=== PATIENT | male | born 1950 | race Caucasian/White ===

== ENCOUNTER 2016-07-01 14:28 | Emergency (ER) | payer MEDICARE, OTHER ==
[~2016-07-01] VITALS: Ht 170.2 cm; Wt 75.0 kg
[~2016-07-01 14:28] MED LIST: DEXA4TAB PO; DOCU-144 PO; FLUT9.9S NASAL; HYDR-3498 PO; LEVE-5 PO; METF-388 PO; OLOP2.5D BOTH EYES
[2016-07-01 14:56] VITALS: Ht 170.2 cm; Wt 75.0 kg
--- NOTE | 2016-07-01 16:00 | RADRPT ---
PROCEDURE: US Lower extremity Venous. CLINICAL INDICATION: Left leg pain TECHNIQUE: Multiple sonographic images of the left lower extremity deep venous system was obtained utilizing grayscale, color-flow, compressive sonography and doppler imaging with augmentation. The images were reviewed on a PACS workstation. COMPARISON: None. FINDINGS: There is normal compressibility and flow within the left common femoral, superficial femoral, label rewinder ior tibial, peroneal and popliteal veins. RPTAT: AA IMPRESSION: No sonographic evidence for deep venous thrombosis. .Jesus Washington MD, MD Date Time Electronically viewed and signed by .Jesus Washington MD, on 07/01/2016 15:59 .S/
[2016-07-01] MEDS ORDERED: KENC1 TOP (16:18)
[2016-07-01] MEDS ORDERED: CLOT30CR24 TOP (16:18)
--- NOTE | 2016-07-01 17:49 | ERD ---
ER Documentation Chief Complaint Date/Time DATE: 07/01/16 TIME: 17:44 Chief Complaint LEG CALF PAIN FOLLOWING SX MONTH AGO HPI 66-year-old male with a past nuchal history of brain cancer and diabetes presents the ED complaining of left leg pain that started yesterday. Patient's son traffic ii manager at this time. Stated that patient had brain surgery on June [address] Rodriguez States that he was discharged from the [facility] on June 23. States that he has an appointment with Dr. laura on July 03. That he called Dr. Rodriguez and he told patient to go to the ED for an ultrasound of the left leg. Reports that he also has a rash on the top of his left foot. Denies any fever, chills, loss sensation, loss of range of motion chest pain, wheezing. ROS All systems reviewed and are negative except as per history of present illness. Medications Home Meds Active Scripts Clotrimazole* (Clotrimazole* AF) 1% - 30 Gm Cream.gm., 1 APPLIC TOP BID for 7 Days, TUB Prov:BRYNN KNAPP PA-C 07/01/16 Triamcinolone Acetonide (Triamcinolone Acetonide) 0.1% - 15 Gm Cream.gm., 1 APPLIC TOP BID, #1 TUB Prov:BRYNN KNAPP PA-C 07/01/16 Levetiracetam* (Keppra*) 500 Mg Tablet, 500 MG PO BID, #30 TAB Prov:OFELIA MARINELLI MD 12/10/15 Docusate Sodium* (Colace*) 100 Mg Capsule, 100 MG PO BID, #60 CAP Prov:TR KOLB MD 12/02/15 Hydrocodone Bit-Acetaminophen* ([place]*) 5-325 Mg Tab, 1 TAB PO Q4H Y for PAIN LEVEL 6-10 for 14 Days, TAB Prov:RT KOLB MD 12/02/15 Reported Medications Dexamethasone* (Dexamethasone*) 4 Mg Tablet, 4 MG PO Q6, TAB 12/10/15 Fluticasone Propionate (Flonase Allergy Relief) 9.9 Ml [place] Line.susp, 2 SPRAY NASAL DAILY, #1 BOTTLE TO EACH NOSTRIL 11/17/15 Olopatadine* (Pataday*) 0.2% - 2.5 Ml Drops, 1 DROP BOTH EYES DAILY, EA 11/17/15 Metformin Hcl* (Metformin Hcl*) 1,000 Mg Tablet, 1000 MG PO BID WITH MEALS, #30 TAB 11/17/15 Allergies Allergies: Coded Allergies: No Known Allergy (Unverified , 12/10/15) PMhx/Soc History of Surgery: Yes (brain sx) Anesthesia Reaction: No Hx Neurological Disorder: No Hx Respiratory Disorders: No Hx Cardiac Disorders: No Hx Psychiatric Problems: No Hx Miscellaneous Medical Probl: Yes (diabetes, brain cancer) Hx Alcohol Use: No Hx Substance Use: No Hx Tobacco Use: No Smoking Status: Never smoker Physical Exam Vitals Vital Signs Date Time Temp Pulse Resp B/P Pulse Ox O2 Delivery O2 Flow Rate FiO2 07/01/16 14:56 133 20 112/84 100 Physical Exam Const: Iam-yoh-wykdsuanh, well-nourished. In no acute distress. Head: Atraumatic, normocephalic Eyes: Normal Conjunctiva without injection. No purulent discharge. PERRLA. EOMI ENT: Normal external ear. Ear canal without erythema. Tympanic membrane pearly alexander without effusion or bulging. Nasal canal clear with normal turbinates. Moist oropharynx without tonsillar exudates. Non-erythematous pharynx. Uvula midline. No drooling. No trismus. Neck: No cervical midline tenderness. Full range of motion. No meningismus. No cervical lymphadenopathy. No JVD. Resp: Clear to auscultation bilaterally. No wheezing, rhonchi, rales, or crackles. No accessory muscle use. No retractions. Cardio: Regular rate and rhythm. No murmurs, rubs or gallops. Abd: Soft, non tender, non distended. Normal bowel sounds. No palpable masses. No rebound tenderness. No guarding. Negative McBurney's Point. Negative Stern's Sign. Skin: Normal skin turgor. No petechiae. Beefy-red circular rash with central clearing noted on the webspaces of patient's left foot. No erythema, edema, fluctuance, without streaking, papular macular rash. Back: No midline tenderness. No CVA tenderness. Ext: No cyanosis, or edema. Tenderness to palpation of the left calf. No erythema, edema, palpable cords, warmth to touch. Distal pulses intact bilaterally. Cap refill less than 2 seconds. Neur: Awake and alert. Normal gait. Normal coordination. Cranial Nerves II- VII intact. Normal finger to nose. Muscle strength 5/5. Sensation intact. Psych: Normal Mood and Affect Procedures/MDM This is a 66-year-old male with a past medical history of brain cancer status post brain surgery, diabetes presents the ED complaining of left calf pain that started last night. Patient is afebrile and nontoxic-appearing. Patient's rash is likely due to tinea infection. Other differential diagnosis include but is not limited to allergic contact dermatitis, urticaria, insect bites, cutaneous candidiasis, eczema, scabies, tinea infection, erythema multiforme, psoriasis, SJS, TEN. Low suspicion for sepsis, cellulitis, necrotizing fascitis, or other emergent conditions. Patient's extremity symptoms have stabilized while they have been evaluated in the department and are appropriate for outpatient follow up. No evidence of fractures, dislocations, compartment syndrome, neurologic injury, vascular injury, open joint, open fracture, tendon laceration, septic arthritis, osteomyelitis, DVT, foreign body, or other emergent conditions. This was discussed with her Rebekah, my supervising physician. Stated that patient can be managed on outpatient basis. Discharge medications: Triamcinolone, Lotrimin cream Follow up with primary care physician in 1-2 days. Instructed patient to return to the ED sooner for any worsening symptoms. Patient's questions were answered. Patient understood and agreed with discharge plan. Patient discharged stable. Departure Diagnosis: Primary Impression: Pain of left leg Additional Impression: Rash and nonspecific skin eruption Condition: Stable Patient Instructions: Self-Care for Skin Rashes, Possible Causes of Low Back or Leg Pain, Tinea Corporis Referrals: [facility] YOU HAVE RECEIVED A MEDICAL SCREENING EXAM AND THE RESULTS INDICATE THAT YOU DO NOT HAVE A CONDITION THAT REQUIRES URGENT TREATMENT IN THE EMERGENCY DEPARTMENT. FURTHER EVALUATION AND TREATMENT OF YOUR CONDITION CAN WAIT UNTIL YOU ARE SEEN IN YOUR DOCTORS OFFICE WITHIN THE NEXT 1-2 DAYS. IT IS YOUR RESPONSIBILITY TO MAKE AN APPOINTMENT FOR FOLOW-UP CARE. IF YOU HAVE A PRIMARY DOCTOR --you should call your primary doctor and schedule an appointment IF YOU DO NOT HAVE A PRIMARY DOCTOR YOU CAN CALL OUR PHYSICIAN REFERRAL HOTLINE AT IF YOU CAN NOT AFFORD TO SEE A PHYSICIAN YOU CAN CHOSE FROM THE FOLLOWING [facility] [address] [facility] [address] [facility] [address] [facility] [address] [facility] [address] [place] [employer]. [address] [facility] [facility] YOU HAVE RECEIVED A MEDICAL SCREENING EXAM AND THE RESULTS INDICATE THAT YOU DO NOT HAVE A CONDITION THAT REQUIRES URGENT TREATMENT IN THE EMERGENCY DEPARTMENT. FURTHER EVALUATION AND TREATMENT OF YOUR CONDITION CAN WAIT UNTIL YOU ARE SEEN IN YOUR DOCTORS OFFICE WITHIN THE NEXT 1-2 DAYS. IT IS YOUR RESPONSIBILITY TO MAKE AN APPOINTMENT FOR FOLOW-UP CARE. IF YOU HAVE A PRIMARY DOCTOR --you should call your primary doctor and schedule and appointment IF YOU DO NOT HAVE A PRIMARY DOCTOR YOU CAN CALL OUR PHYSICIAN REFERRAL HOTLINE AT . IF YOU CAN NOT AFFORD TO SEE A PHYSICIAN YOU CAN CHOSE FROM THE FOLLOWING [facility] INSTITUTIONS: [facility] [address] [place] [address] [facility] [address] [place] [address] [facility] [address] [place] [address] [facility] URGENT CARE/SPECIALTIES Additional Instructions: FOLLOW UP WITH THE NEUROLOGIST IN 2 DAYS. IMPORTANT TO KEEP YOUR APPOINTMENT. Return to this facility if you are not improving as expected. BRYNN KNAPP PA-C Jul 01, 2016 17:49
== END 2016-07-01 16:49 | disposition home or self-care (01) ==
LOC: FTE 14:28
DX: M79.605 Pain in left leg (principal); I10 Essential (primary) hypertension; E11.9 Type 2 diabetes mellitus without complications; R21 Rash and other nonspecific skin eruption; Z85.841 Personal history of malignant neoplasm of brain; Z79.84 Long term (current) use of oral hypoglycemic drugs
CPT/HCPCS: 93971

== ENCOUNTER 2016-08-07 13:45 | Inpatient (IN) | payer MEDICARE, OTHER ==
[~2016-08-07] VITALS: Ht 167.6 cm; Wt 191.3 kg
[~2016-08-07 13:45] MED LIST changes: +CLOT30CR24 TOP; +KENC1 TOP; -METF-388 PO; +METF1000 PO
[2016-08-07] MEDS ORDERED: morphine 4 MG/ML VIAL IV STA (17:38)
[2016-08-07] MEDS ORDERED: DEXA2TAB5 PO (18:20)
[2016-08-07] MEDS ORDERED: [UNRECOGNIZED DRUG - CODE] PO (18:21)
[2016-08-07] MEDS ORDERED: FLUC100T39 PO (18:22)
[2016-08-07] MEDS ORDERED: FURO40TA4 PO (18:22)
[2016-08-07] MEDS ORDERED: HYDR-906 PO (18:23)
[2016-08-07] MEDS ORDERED: ONDA8TAB83 PO (18:23)
[2016-08-07 18:34] LABS: BASOPHILS % 0.3 % (0.0-2.0); HEMATOCRIT 40.6 % (42.0-52.0); HEMOGLOBIN 13.8 g/dl (14.0-18.0); LYMPHOCYTES # 1.1 10^3/ul (0.8-2.9); MEAN CORPUSCULAR HEMOGLOBIN 32.2 pg (29.0-33.0); MEAN CORPUSCULAR VOLUME 94.9 fl (82.0-101.0); MEAN PLATELET VOLUME 7.9 fl (7.4-10.4); MONOCYTE # 0.4 10^3/ul (0.3-0.9); MONOCYTES % 4.8 % (0.0-11.0); NEUTROPHIL # 6.3 10^3/ul (1.6-7.5); NEUTROPHILS % 80.9 % (39.0-77.0); PLATELET COUNT 271 10^3/UL (140-440); RED BLOOD COUNT 4.28 10^6/ul (4.70-6.10); RED CELL DISTRIBUTION WIDTH 16.1 % (11.5-14.5); UNCORRECTED WBC 7.8 10^3/ul (4.8-10.8); WHITE BLOOD COUNT 7.8 10^3/ul (4.8-10.8)
[2016-08-07 18:37] LABS: CONDITION 1; LH ANALYZER COMMENTS 1
[2016-08-07 18:40] LABS: INR 0.88; PROTIME 11.9 Sec (12.2-14.2); PT RATIO 0.9
[2016-08-07 18:42] LABS: POTASSIUM 4.3 mmol/L (3.5-5.1)
[2016-08-07 18:44] LABS: CREATININE 0.55 mg/dl (0.61-1.24)
[2016-08-07 18:45] LABS: CALCIUM 9.4 mg/dl (8.4-10.2)
--- NOTE | 2016-08-07 19:05 | RADRPT ---
PROCEDURE: CT head without Contrast CLINICAL INDICATION: Headache, history of brain tumor TECHNIQUE: Transaxial images were made through the head on a multi-slice scanner without intraveno us contrast. Coronal and sagittal images were subsequently reformatted. One or more of the following dose reduction techniques were used: - Automated exposure control. - Adjustment of the mA and/or kV according to patient size. - Use of iterative reconstruction technique. Radiation dose: CTDIvol = 42.30 mGy; DLP = 720.23 mGy-cm. COMPARISON: 12/10/2015 FINDINGS: There is again evidence of a previous left craniotomy. There is increased soft tissue thickness invo lving the scalp overlying the craniotomy site. 2 cystic areas are seen deep to the craniotomy site with the largest seen more anteriorly within the left frontal lobe having increased in size from the previous now measuring 2.9 x 2.0 x 1.8 cm. The second is positioned more posteriorly and laterally within the left parietal lobe and measures 1.5 x 0.9 x 0.8 cm. The ventricles are normal in size and there is no midline shift. There is decreased density within the left parietal white matter tracts which may represent mild vas ogenic edema. No intracranial bleed is identified. No intracranial bleed, mass, or significant extra-axial fluid collection is identified. There is no longer pneumocephalus but the subarachnoid spaces particularly in the frontal regions laughlin ve become more prominent compatible with cortical volume loss. IMPRESSION: 1. There is again evidence of a previous left craniotomy. 2. 2 hypodense lesions are now seen deep to the craniotomy site the largest seen within the right f rontal lobe which now measures 2.9 x 2.0 x 1.8 cm, having increased in size from the previous. The other is seen more posteriorly and laterally within the left parietal lobe measuring 1.5 x 0.9 x 0.8 cm and was not evident previously. The larger measures 15 Houn[place]field in density while the smaller measures 24 HU. No these may represent foci of encephalomalacia, cystic neoplasm cannot be excluded . One might consider correlation with MRI with and without gadolinium. 3. Interval mild decrease in density seen through the left parietal white matter tracts suspicious for mild vasogenic edema. This was not evident previously. 4. Increasing cortical loss with more prominent subarachnoid space is seen in the frontal regions b ilaterally. There is no longer postop pneumocephalus. 5. No intracranial bleed or midline shift is identified. 6. There is soft tissue swelling involving the scalp overlying the craniotomy site. Findings of hypodense lesions deep to the craniotomy site for which neoplasm cannot be excluded were telephoned by Xavi Rodriguez MD to Dr. Vides on 08/07/2016 at 02/14/1957 hours. Physician Jacob Date Time Electronically viewed and signed by Physician Jacob on 08/07/2016 19:05 RH/
[2016-08-07 19:33] LABS: PARTIAL THROMBOPLASTIN TIME < 20.0 Sec (25.0-35.0)
[2016-08-07] MEDS ORDERED: ONDANSETRON 4 MG INJ IV PRN ×2 (21:00→23:00)
[2016-08-07] MEDS ORDERED: ACETAMINOPHEN 325 MG TAB PO PRN ×2 (21:00→23:00)
[2016-08-07 22:00] VITALS: PULSE 71; TEMP 98.7
--- NOTE | 2016-08-07 22:03 | ERA ---
ER Documentation Chief Complaint Date/Time DATE: 08/07/16 TIME: 21:57 Chief Complaint severe headache,s/p brain tumor removal a month ago HPI 66-year-old male with a history of glioblastoma status post left craniotomy and tumor resection in November 2015 with a repeat surgery in May 2016 for a recurrent tumor. Patient is presenting with left-sided headache at the site of his surgery for about 3 days. History from the patient is limited as he has chronic expressive aphasia. However his states that he has been complaining about pain for 3 days and the pain has been constant. Is unclear if there is any alleviating or exacerbating factors as the patient is unable to express what he feels. Per his , he has some swelling over the surgical site as well. He has had no breakthrough seizures, fevers, chills, new focal weakness or numbness, or difficulty walking. Of note, he was recently diagnosed with a left lower extremity DVT and had an IVC filter placed ROS All systems reviewed and are negative except as per history of present illness. Medications Home Meds Active Scripts Levetiracetam* (Keppra*) 500 Mg Tablet, 500 MG PO BID, #30 TAB Prov:OFELIA MARINELLI MD 12/10/15 Reported Medications Hydrocodone/Acetaminophen ([place] 5-325 Tablet) 1 Each Tablet, 1 EACH PO Q6H Y for PRN, TAB 08/07/16 Ondansetron Hcl* (Ondansetron Hcl*) 8 Mg Tablet, 8 MG PO Q6H Y for NAUSEA AND OR VOMITING, TAB 08/07/16 Fluconazole* (Fluconazole*) 100 Mg Tablet, 100 MG PO DAILY, TAB 08/07/16 Furosemide* (Furosemide*) 40 Mg Tablet, 40 MG PO QAM, TAB 08/07/16 Flucytosine (FLUCYTOSINE) 500 Mg Capsule, 500 MG PO TID, CAP 08/07/16 Dexamethasone* (Dexamethasone*) 2 Mg Tablet, 2 MG PO Q8, TAB 08/07/16 Metformin Hcl* (Metformin Hcl*) 1,000 Mg Tablet, 1000 MG PO BID WITH MEALS, #30 TAB 11/17/15 Discontinued Reported Medications Dexamethasone* (Dexamethasone*) 4 Mg Tablet, 4 MG PO Q6, TAB 12/10/15 Fluticasone Propionate (Flonase Allergy Relief) 9.9 Ml [place].susp, 2 SPRAY NASAL DAILY, #1 BOTTLE TO EACH NOSTRIL 11/17/15 Olopatadine* (Pataday*) 0.2% - 2.5 Ml Drops, 1 DROP BOTH EYES DAILY, EA 11/17/15 Discontinued Scripts Clotrimazole* (Clotrimazole* AF) 1% - 30 Gm Cream.gm., 1 APPLIC TOP BID for 7 Days, TUB Prov:BRYNN KNAPP PA-C 07/01/16 Triamcinolone Acetonide (Triamcinolone Acetonide) 0.1% - 15 Gm Cream.gm., 1 APPLIC TOP BID, #1 TUB Prov:BRYNN KNAPP PA-C 07/01/16 Docusate Sodium* (Colace*) 100 Mg Capsule, 100 MG PO BID, #60 CAP Prov:TR KOLB MD 12/02/15 Hydrocodone Bit-Acetaminophen* ([place]*) 5-325 Mg Tab, 1 TAB PO Q4H Y for PAIN LEVEL 6-10 for 14 Days, TAB Prov:TR KOLB MD 12/02/15 Allergies Allergies: Coded Allergies: No Known Allergy (Unverified , 08/07/16) PMhx/Soc History of Surgery: Yes (brain sx) Anesthesia Reaction: No Hx Neurological Disorder: No Hx Respiratory Disorders: No Hx Cardiac Disorders: Yes (htn) Hx Psychiatric Problems: No Hx Miscellaneous Medical Probl: Yes (diabetes, brain cancer) Hx Alcohol Use: No Hx Substance Use: No Hx Tobacco Use: No Smoking Status: Never smoker FmHx Family History: No diabetes Physical Exam Vitals Vital Signs Date Time Temp Pulse Resp B/P Pulse Ox O2 Delivery O2 Flow Rate FiO2 08/07/16 18:55 98.7 20 135/78 96 08/07/16 14:10 98.7 107 20 117/77 98 Physical Exam Const: Well-appearing, no distress Head: Atraumatic, bald, left parietal frontal surgical scar noted is well- healed with no overlying erythema. However there is a large area of fluctuance over the surgical site. No induration. Eyes: Normal Conjunctiva, PERRL, EOMI ENT: Normal External Ears, Nose and Mouth. Neck: Full range of motion. No meningismus. Resp: Clear to auscultation bilaterally Cardio: Regular rate and rhythm, no murmurs Abd: Soft, non tender, non distended. Normal bowel sounds Skin: No petechiae or rashes Back: No midline or flank tenderness Ext: No cyanosis, or edema Neur: Awake and alert, expressive aphasia, normal gait, strength and sensations intact in all 4 extremities Psych: Normal Mood and Affect Result Diagram: 08/07/16 1800 08/07/16 1800 Results 24 hrs Laboratory Tests Test 08/07/16 18:00 08/07/16 19:10 Anion Gap 16 Basophils # 0.010^3/ul Basophils % 0.3% Blood Morphology Comment Blood Urea Nitrogen 20mg/dl Calcium Level 9.4mg/dl Carbon Dioxide Level 26mmol/L Chloride Level 99mmol/L Creatinine 0.55mg/dl Eosinophils # 0.010^3/ul Eosinophils % 0.0% Glucose Level 280mg/dl Hematocrit 40.6% Hemoglobin 13.8g/dl Lymphocytes # 1.110^3/ul Lymphocytes % 14.0% Mean Corpuscular Hemoglobin 32.2pg Mean Corpuscular Hemoglobin Concent 34.0g/dl Mean Corpuscular Volume 94.9fl Mean Platelet Volume 7.9fl Monocytes # 0.410^3/ul Monocytes % 4.8% Neutrophils # 6.310^3/ul Neutrophils % 80.9% Nucleated Red Blood Cells # 0.010^3/ul Nucleated Red Blood Cells % 0.0/100WBC Platelet Count 03403^3/UL Potassium Level 4.3mmol/L Red Blood Count 4.2810^6/ul Red Cell Distribution Width 16.1% Sodium Level 137mmol/L White Blood Count 7.810^3/ul Activated Partial Thromboplast Time < 20.0Sec INR International Normalized Ratio 0.88 Prothrombin Time 11.9Sec Prothrombin Time Ratio 0.9 Current Medications Medications (Trade) Dose Ordered Sig/Jose Route PRN Reason Start Time Stop Time Status Last Admin Dose Admin Morphine Sulfate (morphine) 4 mg ONCE STAT IV 08/07/16 17:38 08/07/16 17:53 DC 08/07/16 18:08 Ondansetron HCl (Zofran Inj) 4 mg BRIDGE ORDER PRN IV NAUSEA AND/OR VOMITING 08/07/16 21:00 08/08/16 20:59 Acetaminophen (Tylenol Tab) 650 mg ER BRIDGE PRN PO MILD PAIN/FEVER 08/07/16 21:00 08/08/16 20:59 Procedures/MDM Patient is presenting with new onset headache for 3 days with associated fluctuance over his surgical site. His vitals are stable and he is afebrile. He has a nonfocal neurologic exam. He has chronic expressive aphasia that has not changed. I do not suspect increased intracranial pressure, however there is a possibility of recurrent tumor versus infection versus intracranial hemorrhage. A CT of his head was done and showed new fluid collections that may be cystic masses, however there is an associated fluid collection under the scalp at the surgical site. I discussed the results with the neurosurgeon on- call, Dr. Garcia, who recommended admission for MRI and further workup as there is a possibility that this is an abscess. Accepting Care Team: Current data and ongoing care discussed. Time: Time of admission Primary Provider: Kwadwo Consulting: Radha with Neurosurgery Outstanding Data: none Departure Diagnosis: Primary Impression: Left-sided headache Additional Impressions: Fluid collection at surgical site Qualified Code: T88.8XXA - Fluid collection at surgical site, initial encounter History of brain cancer History of craniotomy Condition: PRABHJOT Rajput MD Aug 07, 2016 22:03
[2016-08-07 22:34] VITALS: BP 140/76; RESP 18
[2016-08-07 22:45] VITALS: Ht 167.6 cm; Wt 191.3 kg
[2016-08-07] MEDS ORDERED: morphine 2 MG INJ IV PRN (23:00)
--- NOTE | 2016-08-07 23:24 | RADRPT ---
PROCEDURE: MR Brain with and without contrast. CLINICAL INDICATION: Status post tumor resection, latest May 2016. Status post radiation ther apy. Increased size of left frontal hypodense lesions. TECHNIQUE: MRI brain was performed on a high field MRI system. Sequences included sagittal T1, ax ial T1, FLAIR, T2, GRE and diffusion weighted. After the administration of 10 cc Magnevist IV cont rast material, axial and coronal T1-weighted images with fat saturation were performed. COMPARISON: CT brain 08/07/2016, MRI 11/30/2015 . FINDINGS: Posterior left frontal craniotomy defect is redemonstrated with overlying extracranial fluid and sof t tissue swelling. There is fluid underlying the craniotomy flap. There is underlying dural thicke cora. There are scattered hypodense foci along the dural flaps as well as within the posterior left frontal surgical defect. There is 2.8 x 1.9 x 2.3 cm irregular peripherally enhancing lesion exten ding to the cortical surface. The central contents are homogeneous without evidence for blood produ cts and is consistent with a surgical defect. There is no associated mass effect. Along the more p osterior aspect of the craniotomy flap there is 1.6 x 11 x 12 mm similar appearing irregular periphe rally enhancing lesion extending to the cortical surface, also without mass effect. There is conflu ent left greater than right nonenhancing frontal and parietal subcortical white matter changes. The re is no suspicious extra-axial enhancing collection to suggest a subdural abscess or empyema. There are no other focal parenchymal enhancing lesions. The ventricles and sulci are otherwise norm al in size and configuration.. There is no midline shift. There is no acute stroke on diffusion w eighted images. There is no mass lesion. There is no intracranial hemorrhage or abnormal extra-ax ial fluid collection. Visualized paranasal sinuses are clear. Foramen magnum is unremarkable. IMPRESSION: 1. Subcutaneous fluid and infiltration overlying the left frontal craniotomy flap. Subcutaneous in fection cannot be excluded. 2. 2 distinct posterior left frontal lobe parenchymal defects with mild surrounding enhancement and no significant mass effect, consistent with postoperative defects. No significant extra-axial ketty ection to suggest empyema or epidural abscess. Although an infection cannot be excluded, the enhanc ement is relatively mild and consistent with recent surgery. 3. Left greater than right cerebral hemispheric white matter changes, increased as compared to MRI of 11/30/2015 and most likely related to radiotherapy. RPTAT: HMVK .Fly Arrieta MD, Date Time Electronically viewed and signed by .Fly Arrieta MD, on 08/07/2016 23:24 .K/
[2016-08-07] MEDS ORDERED: GLUCOSE GEL 15 GRAM TUBE PO PRN ×2 (23:30)
[2016-08-07] MEDS ORDERED: GLUCOSE GEL 15 GRAM TUBE BUCCAL PRN (23:30)
[2016-08-07] MEDS ORDERED: DEXTROSE 50% 50 ML SYRINGE IV PRN ×2 (23:30)
[2016-08-07] MEDS ORDERED: GLUCAGON 1 MG INJ IM PRN (23:30)
[2016-08-08] MEDS: Insulin NOVOLOG SS MILD Algorithm (SS with meals and bedtime) SC SCH ×5 (01:19→20:44)
[2016-08-08] MEDS: INSULIN GLARGINE [LANtus] 3 ML PEN SC SCH ×2 (01:20→20:45)
[2016-08-08] MEDS: ACCUCHECK AT 2AM (Patients on SS coverage) XX SCH (02:00)
[2016-08-08 05:21] LABS: BASOPHILS % 0.1 % (0.0-2.0); HEMATOCRIT 36.2 % (42.0-52.0); HEMOGLOBIN 12.5 g/dl (14.0-18.0); LYMPHOCYTES # 0.9 10^3/ul (0.8-2.9); LYMPHOCYTES % 13.2 % (15.0-51.0); MEAN CORPUSCULAR HEMOGLOBIN 32.7 pg (29.0-33.0); MEAN CORPUSCULAR HGB CONC 34.5 g/dl (32.0-37.0); MEAN CORPUSCULAR VOLUME 94.6 fl (82.0-101.0); MEAN PLATELET VOLUME 7.4 fl (7.4-10.4); MONOCYTE # 0.3 10^3/ul (0.3-0.9); MONOCYTES % 4.4 % (0.0-11.0); NEUTROPHIL # 5.7 10^3/ul (1.6-7.5); NEUTROPHILS % 82.3 % (39.0-77.0); PLATELET COUNT 244 10^3/UL (140-440); RED BLOOD COUNT 3.83 10^6/ul (4.70-6.10); UNCORRECTED WBC 6.9 10^3/ul (4.8-10.8); WHITE BLOOD COUNT 6.9 10^3/ul (4.8-10.8)
[2016-08-08 05:29] LABS: ALBUMIN 2.9 g/dl (3.3-4.9)
[2016-08-08 05:30] LABS: MAGNESIUM 1.8 mg/dl (1.7-2.5); PHOSPHORUS 3.5 mg/dl (2.5-4.9); POTASSIUM 3.5 mmol/L (3.5-5.1)
[2016-08-08 05:32] LABS: ALBUMIN/GLOBULIN RATIO 1.31; BILIRUBIN,INDIRECT 0.3 mg/dl (0-1.1); BILIRUBIN,TOTAL 0.3 mg/dl (0.2-1.3); CREATININE 0.51 mg/dl (0.61-1.24); TOTAL PROTEIN 5.1 g/dl (6.1-8.1)
[2016-08-08 05:48] LABS: CONDITION 1; LH ANALYZER COMMENTS 1
--- NOTE | 2016-08-08 06:15 | HP ---
Date/Time of Note Date/Time of Note DATE: 08/08/16 TIME: 06:01 Assessment/Plan VTE Prophylaxis VTE Prophylaxis Intervention: SCD's Lines/Catheters [facility] Saline Lock Assessment/Plan Assessment/Plan 1. Hx of Glioblastoma Multiforme s/p Craniotomy: now presenting with severe headache. MRI showing Subcutaneous fluid and infiltration overlying the left frontal craniotomy. - Awaiting neurosurgery evaluation - Cont frequent neurochecks - Will place on abx given infiltration overlying the left frontal craniotomy, which could be infectious - pain mgmt 2. Severe Headache: see # 1 3. Aphasia 2/ # 1 4. DM: insulin HPI/ROS Admit Date/Time Admit Date/Time Aug 07, 2016 at 20:50 Hx of Present Illness 66-year-old male with a history of DM, Dyslipidemia and glioblastoma status post left craniotomy and tumor resection in November 2015 with a repeat surgery in May 2016 for a recurrent tumor. Patient is presenting with left-sided headache at the site of his surgery for about 3 days. History from the patient is limited as he has chronic expressive aphasia. However his states that he has been complaining about pain for 3 days and the pain has been constant. Is unclear if there is any alleviating or exacerbating factors as the patient is unable to express what he feels. Per his , he has some swelling over the surgical site as well. He has had no breakthrough seizures, fevers, chills , new focal weakness or numbness, or difficulty walking. Of note, he was recently diagnosed with a left lower extremity DVT and had an IVC filter placed. In ER, CT Head and MRI were done, which showed Subcutaneous fluid and infiltration overlying the left frontal craniotomy flap: See complete radiology report below under procedure. Dr. Garcia , neurosurgeon was consulted. PMH/Family/Social Past Medical History Medical History: diabetes, high cholesterol, other (Glioblastoma multiforme s/ p craniotomy) Past Surgical History Past Surgical Hx: other (craniotomy) Social History Alcohol Use: none Smoking Status: Never smoker Drug Use: none Exam/Review of Systems Vital Signs Vitals Vital Signs Date Time Temp Pulse Resp B/P Pulse Ox O2 Delivery O2 Flow Rate FiO2 08/07/16 22:34 97.5 57 18 140/76 98 08/07/16 22:00 Room Air Intake and Output 2/8/17 2/8/17 2/9/17 15:00 23:00 07:00 Intake Total 100 ml Output Total 320 ml Balance -220 ml Exam Constitutional: non-verbal, other (no acute distress) Head: other (s/p craniotomy) Eyes: PERRL Respiratory: clear to auscultation, normal air movement Cardiovascular: other (steven with regular rhythm) Gastrointestinal: non-tender, soft Extremities: normal pulses Labs Result Diagram: 08/08/1644308/08/16443 Medications Medications Current Medications Acetaminophen (Tylenol Tab) 650 mg Q6H PRN PO PAIN AND OR ELEVATED TEMP; Start 08/07/16 at 23:00 Morphine Sulfate (morphine) 2 mg Q4H PRN IV PAIN; Start 08/07/16 at 23:00 Ondansetron HCl (Zofran Inj) 4 mg Q6H PRN IV NAUSEA AND/OR VOMITING; Start 08/07 at 23:00 Insulin Glargine (Lantus) 10 unit HS SC Last administered on 08/08/16t 01:20; Admin Dose 10 UNIT; Start 08/08/16 at 21:00 Diagnostic Test (Pha) (Accucheck) 1 ea 02 XX ; Start 08/08/16 at 02:00 Miscellaneous Information 1 ea NOTE XX ; Start 08/07/16 at 23:30 Glucose (Glutose) 15 gm Q15M PRN PO DECREASED GLUCOSE; Start 08/07/16 at 23:30 Glucose (Glutose) 22.5 gm Q15M PRN PO DECREASED GLUCOSE; Start 08/07/16 at 23:30 Dextrose (D50w Syringe) 25 ml Q15M PRN IV DECREASED GLUCOSE; Start 08/07/16 at 23:30 Dextrose (D50w Syringe) 50 ml Q15M PRN IV DECREASED GLUCOSE; Start 08/07/16 at 23:30 Glucagon (Glucagen) 1 mg Q15M PRN IM DECREASED GLUCOSE; Start 08/07/16 at 23:30 Glucose (Glutose) 15 gm Q15M PRN BUCCAL DECREASED GLUCOSE; Start 08/07/16 at 23: [address] Head 1. There is again evidence of a previous left craniotomy. 2. 2 hypodense lesions are now seen deep to the craniotomy site the largest seen within the right frontal lobe which now measures 2.9 x 2.0 x 1.8 cm, having increased in size from the previous. The other is seen more posteriorly and laterally within the left parietal lobe measuring 1.5 x 0.9 x 0.8 cm and was not evident previously. The larger measures 15 Houn[place]field in density while the smaller measures 24 HU. No these may represent foci of encephalomalacia, cystic neoplasm cannot be excluded. One might consider correlation with MRI with and without gadolinium. 3. Interval mild decrease in density seen through the left parietal white matter tracts suspicious for mild vasogenic edema. This was not evident previously. 4. Increasing cortical loss with more prominent subarachnoid space is seen in the frontal regions bilaterally. There is no longer postop pneumocephalus. 5. No intracranial bleed or midline shift is identified. 6. There is soft tissue swelling involving the scalp overlying the craniotomy site. BRAIN MRI IMPRESSION: 1. Subcutaneous fluid and infiltration overlying the left frontal craniotomy flap. Subcutaneous infection cannot be excluded. 2. 2 distinct posterior left frontal lobe parenchymal defects with mild surrounding enhancement and no significant mass effect, consistent with postoperative defects. No significant extra-axial collection to suggest empyema or epidural abscess. Although an infection cannot be excluded, the enhancement is relatively mild and consistent with recent surgery. 3. Left greater than right cerebral hemispheric white matter changes, increased as compared to MRI of 11/30/2015 and most likely related to radiotherapy. JUAN TOURE MD Aug 08, 2016 06:13
[2016-08-08] MEDS ORDERED: INSULIN ASPART [NOVOLOG] 3 ML PEN SC SCH (07:20)
[2016-08-08 07:35] VITALS: BP 136/70; RESP 19
[2016-08-08 07:38] VITALS: BP 109/70; RESP 18
[2016-08-08] MEDS: CEFEPIME 1GM/50 ML (PMX) 50 ML IVPB SCH ×2 (09:10→20:40)
--- NOTE | 2016-08-08 12:24 | PN ---
Date/Time of Note Date/Time of Note DATE: 08/08/16 TIME: 12:22 Assessment/Plan VTE Prophylaxis VTE Prophylaxis Intervention: SCD's Lines/Catheters IV Catheter Type (from [facility]): Saline Lock Urinary Cath still in place: No Assessment/Plan Assessment/Plan 1. Hx of Glioblastoma Multiforme s/p Craniotomy: now presenting with severe headache. MRI showing Subcutaneous fluid and infiltration overlying the left frontal craniotomy. - Awaiting neurosurgery evaluation by - continue IV abx abx given infiltration overlying the left frontal craniotomy , which could be infectious - pain management 2. Severe Headache: see # 1 3. Aphasia 08/01 # 1 4. DM: insulin lantus, sliding scale SCD for DVT prophylaxis Subjective 24 Hr Interval Summary Free Text/Dictation headache better, BP stable, awaiting neurosurgery evaluation Exam/Review of Systems Vital Signs Vitals Vital Signs Date Time Temp Pulse Resp B/P Pulse Ox O2 Delivery O2 Flow Rate FiO2 08/08/16 07:38 98.0 89 18 109/70 98 08/07/16 22:00 Room Air Intake and Output 08/07/16 08/07/16 08/08/16 15:00 23:00 07:00 Intake Total 100 ml Output Total 320 ml Balance -220 ml Exam Constitutional: non-verbal, other (no acute distress) Head: other (s/p craniotomy) Eyes: PERRL Respiratory: clear to auscultation, normal air movement Cardiovascular: other (steven with regular rhythm) Gastrointestinal: non-tender, soft Extremities: normal pulses Results Result Diagram: 08/08/16 0444 08/08/16 0444 Results 24 hrs Laboratory Tests Test 08/07/16 18:00 08/07/16 19:10 08/07/16 23:31 08/08/16 03:11 Anion Gap 16 Basophils # 0.0 Basophils % 0.3 Blood Morphology Comment Blood Urea Nitrogen 20 Calcium Level 9.4 Carbon Dioxide Level 26 Chloride Level 99 Creatinine 0.55 L Eosinophils # 0.0 Eosinophils % 0.0 Glucose Level 280 H Hematocrit 40.6 L Hemoglobin 13.8 L Lymphocytes # 1.1 Lymphocytes % 14.0 L Mean Corpuscular Hemoglobin 32.2 Mean Corpuscular Hemoglobin Concent 34.0 Mean Corpuscular Volume 94.9 Mean Platelet Volume 7.9 Monocytes # 0.4 Monocytes % 4.8 Neutrophils # 6.3 Neutrophils % 80.9 H Nucleated Red Blood Cells # 0.0 Nucleated Red Blood Cells % 0.0 Platelet Count 271 # Potassium Level 4.3 Red Blood Count 4.28 L Red Cell Distribution Width 16.1 H Sodium Level 137 White Blood Count 7.8 # Activated Partial Thromboplast Time < 20.0 L INR International Normalized Ratio 0.88 Prothrombin Time 11.9 L Prothrombin Time Ratio 0.9 Bedside Glucose 295 H 312 H Test 08/08/16 04:44 08/08/16 08:43 Alanine Aminotransferase (ALT/SGPT) 50 Albumin 2.9 L Albumin/Globulin Ratio 1.31 Alkaline Phosphatase 56 Anion Gap 15 Aspartate Amino Transf (AST/SGOT) 15 Basophils # 0.0 Basophils % 0.1 Blood Morphology Comment Blood Urea Nitrogen 21 H Calcium Level 9.0 Carbon Dioxide Level 27 Chloride Level 101 Creatinine 0.51 L Direct Bilirubin 0.00 Eosinophils # 0.0 Eosinophils % 0.0 Globulin 2.20 Glucose Level 272 H Hematocrit 36.2 L Hemoglobin 12.5 L Indirect Bilirubin 0.3 Lymphocytes # 0.9 Lymphocytes % 13.2 L Magnesium Level 1.8 Mean Corpuscular Hemoglobin 32.7 Mean Corpuscular Hemoglobin Concent 34.5 Mean Corpuscular Volume 94.6 Mean Platelet Volume 7.4 Monocytes # 0.3 Monocytes % 4.4 Neutrophils # 5.7 Neutrophils % 82.3 H Nucleated Red Blood Cells # 0.0 Nucleated Red Blood Cells % 0.0 Phosphorus Level 3.5 Platelet Count 244 Potassium Level 3.5 Red Blood Count 3.83 L Red Cell Distribution Width 16.0 H Sodium Level 139 Total Bilirubin 0.3 Total Protein 5.1 L White Blood Count 6.9 Bedside Glucose 202 Medications Medications Current Medications Acetaminophen (Tylenol Tab) 650 mg Q6H PRN PO PAIN AND OR ELEVATED TEMP; Start 08/07/16 at 23:00 Morphine Sulfate (morphine) 2 mg Q4H PRN IV PAIN; Start 08/07/16 at 23:00 Ondansetron HCl (Zofran Inj) 4 mg Q6H PRN IV NAUSEA AND/OR VOMITING; Start 08/07 at 23:00 Insulin Glargine (Lantus) 10 unit HS SC Last administered on 08/08/16t 01:20; Admin Dose 10 UNIT; Start 08/08/16 at 21:00 Diagnostic Test (Pha) (Accucheck) 1 ea 02 XX ; Start 08/08/16 at 02:00 Miscellaneous Information 1 ea NOTE XX ; Start 08/07/16 at 23:30 Glucose (Glutose) 15 gm Q15M PRN PO DECREASED GLUCOSE; Start 08/07/16 at 23:30 Glucose (Glutose) 22.5 gm Q15M PRN PO DECREASED GLUCOSE; Start 08/07/16 at 23:30 Dextrose (D50w Syringe) 25 ml Q15M PRN IV DECREASED GLUCOSE; Start 08/07/16 at 23:30 Dextrose (D50w Syringe) 50 ml Q15M PRN IV DECREASED GLUCOSE; Start 08/07/16 at 23:30 Glucagon (Glucagen) 1 mg Q15M PRN IM DECREASED GLUCOSE; Start 08/07/16 at 23:30 Glucose 15 gm 15 gm Q15M PRN BUCCAL DECREASED GLUCOSE; Start 08/07/16 at 23:30 Cefepime HCl (Maxipime 1gm/50 ml (Pmx)) 50 ml @ 100 mls/hr Q12 IVPB Last administered on 08/08/16t 09:10; Admin Dose 100 MLS/HR; Start 08/08/16 at 09:00 RICHARD HENSON MD Aug 08, 2016 12:24
[2016-08-08] MEDS ORDERED: ONDANSETRON 4 MG INJ IV PRN (12:30)
[2016-08-08] MEDS ORDERED: HYDROCODONE/APAP (5/325) TAB PO PRN (12:30)
[2016-08-08] MEDS ORDERED: FLUCYTOSINE (10 MG/ML PO SYG) PO SCH (13:00)
[2016-08-08] MEDS: FLUCONAZOLE 100 MG TAB PO SCH (14:18)
[2016-08-08] MEDS: DEXAMETHASONE 2 MG TAB PO SCH ×2 (14:19→21:43)
[2016-08-08] MEDS: LEVETIRACETAM 500 MG TAB PO SCH ×2 (14:19→20:40)
[2016-08-08] MEDS ORDERED: INSULIN ASPART [NOVOLOG] 3 ML PEN SC ONE (21:30)
[2016-08-08] MEDS ORDERED: INSULIN GLARGINE [LANtus] 3 ML PEN SC ONE (21:30)
[2016-08-08 21:42] VITALS: BP 124/72; RESP 20
--- NOTE | 2016-08-08 22:19 | QN ---
Documentation Comment 66 year old male with known left GBM, s/p rsx'n x2 most recently in May 2016, who presented here with headache and fluctuance under the scalp over incision. MRI shows area of diffusion restriction at bottom of resection cavity and possible fluid restriction in subgaleal fluid as well. The patient is afebrile and does not appear toxic. However he has been started on empiric abx. His WBC is not elevated. He is enrolled in a clinical trial in [facility]. I have tried to reach his treating neurosurgeon Dr Rodriguez, however he has not returned my call. I have spoken with Eduarda Dee RN who is evidently the study nurse. We will try to arrange for the patient's care to be resumed in [facility]. Otherwise, he may need to undergo craniotomy for I&D of suspected infection. LEXX CORDERO MD Aug 08, 2016 22:19
[2016-08-09] MEDS: ACCUCHECK AT 2AM (Patients on SS coverage) XX SCH (02:00)
[2016-08-09] MEDS ORDERED: PANTOPRAZOLE 40 MG INJ IV SCH (06:00)
[2016-08-09] MEDS: DEXAMETHASONE 2 MG TAB PO SCH ×2 (06:00→14:00)
[2016-08-09 06:18] LABS: ADD SCAN DIFF NO
[2016-08-09 06:25] LABS: BASOPHILS % 0.3 % (0.0-2.0); HEMATOCRIT 37.1 % (42.0-52.0); HEMOGLOBIN 12.5 g/dl (14.0-18.0); LYMPHOCYTES # 0.7 10^3/ul (0.8-2.9); MEAN CORPUSCULAR HGB CONC 33.7 g/dl (32.0-37.0); MEAN CORPUSCULAR VOLUME 94.9 fl (82.0-101.0); MEAN PLATELET VOLUME 9.5 fl (7.4-10.4); MONOCYTE # 0.4 10^3/ul (0.3-0.9); MONOCYTES % 6.1 % (0.0-11.0); NEUTROPHIL # 5.1 10^3/ul (1.6-7.5); NEUTROPHILS % 80.7 % (39.0-77.0); PLATELET COUNT 249 10^3/UL (140-415); RED BLOOD COUNT 3.91 10^6/ul (4.70-6.10); RED CELL DISTRIBUTION WIDTH 14.7 % (11.5-14.5); WHITE BLOOD COUNT 6.4 10^3/ul (4.8-10.8)
[2016-08-09] MEDS ORDERED: DEXTROSE 5%-0.45% NACL 1,000 ML IV SCH (06:30)
[2016-08-09 06:40] LABS: INR 0.86; PROTIME 11.7 Sec (12.2-14.2); PT RATIO 0.9
[2016-08-09 06:41] LABS: PARTIAL THROMBOPLASTIN TIME 22.2 Sec (25.0-35.0)
[2016-08-09 06:53] LABS: ALBUMIN 2.8 g/dl (3.3-4.9); POTASSIUM 4.3 mmol/L (3.5-5.1)
[2016-08-09 06:55] LABS: ALBUMIN/GLOBULIN RATIO 1.21; BILIRUBIN,INDIRECT 0.5 mg/dl (0-1.1); BILIRUBIN,TOTAL 0.5 mg/dl (0.2-1.3); CREATININE 0.6 mg/dl (0.61-1.24); TOTAL PROTEIN 5.1 g/dl (6.1-8.1)
[2016-08-09 06:56] LABS: CALCIUM 8.9 mg/dl (8.4-10.2)
[2016-08-09] MEDS: INSULIN ASPART [NOVOLOG] 3 ML PEN SC SCH ×2 (07:50→11:40)
[2016-08-09 08:00] VITALS: BP 117/76; RESP 20
[2016-08-09] MEDS: CEFEPIME 1GM/50 ML (PMX) 50 ML IVPB SCH (08:16)
[2016-08-09] MEDS: Insulin NOVOLOG SS MILD Algorithm (SS with meals and bedtime) SC SCH ×2 (08:24→12:17)
[2016-08-09] MEDS: LEVETIRACETAM 500 MG TAB PO SCH (09:00)
[2016-08-09] MEDS ORDERED: FUROSEMIDE 40 MG TAB PO SCH (09:00)
[2016-08-09] MEDS: FLUCONAZOLE 100 MG TAB PO SCH (09:00)
[2016-08-09] MEDS ORDERED: [UNRECOGNIZED DRUG - REMARK] XX SCH (10:00)
--- NOTE | 2016-08-09 10:52 | PN ---
Date/Time of Note Date/Time of Note DATE: 08/09/16 TIME: 10:50 Assessment/Plan VTE Prophylaxis VTE Prophylaxis Intervention: SCD's Lines/Catheters [facility] Saline Lock Urinary Cath still in place: No Assessment/Plan Assessment/Plan 1. Hx of Glioblastoma Multiforme s/p Craniotomy: now presenting with severe headache. MRI showing Subcutaneous fluid and infiltration overlying the left frontal craniotomy. - s/P neurosurgery consult- recommended transfer to original hospital- waiting for bed - continue IV abx abx given infiltration overlying the left frontal craniotomy , which could be infectious - pain management 2. Severe Headache: see # 1 3. Aphasia / # 1 4. DM: insulin lantus, sliding scale SCD for DVT prophylaxis Subjective 24 Hr Interval Summary Free Text/Dictation pt remained stable,a febrile, BP stable, S/p neurosurgery evaluation Exam/Review of Systems Vital Signs Vitals Vital Signs Date Time Temp Pulse Resp B/P Pulse Ox O2 Delivery O2 Flow Rate FiO2 08/09/16 08:00 97.9 80 20 117/76 97 08/07/16 22:00 Room Air Intake and Output 08/08/16 08/08/16 08/09/16 15:00 23:00 07:00 Intake Total 100 ml 690 ml 200 ml Output Total 400 ml Balance 100 ml 690 ml -200 ml Exam Constitutional: non-verbal, other (no acute distress) Head: other (s/p craniotomy) Eyes: PERRL Respiratory: clear to auscultation, normal air movement Cardiovascular: other (steven with regular rhythm) Gastrointestinal: non-tender, soft Extremities: normal pulses Results Result Diagram: 08/09/160 08/09/16 0440 Results 24 hrs Laboratory Tests Test 08/08/16 13:28 08/08/16 18:17 08/08/16 20:30 08/09/16 01:58 Bedside Glucose 246 H 277 H 361 H 155 Test 08/09/16 04:40 08/09/16 08:15 Activated Partial Thromboplast Time 22.2 L Alanine Aminotransferase (ALT/SGPT) 46 Albumin 2.8 L Albumin/Globulin Ratio 1.21 Alkaline Phosphatase 59 Anion Gap 9 # Aspartate Amino Transf (AST/SGOT) 14 L Basophils # 0.0 Basophils % 0.3 Blood Urea Nitrogen 17 Calcium Level 8.9 Carbon Dioxide Level 31 Chloride Level 104 Creatinine 0.60 L Direct Bilirubin 0.00 Eosinophils # 0.0 Eosinophils % 0.0 Globulin 2.30 Glucose Level 177 Hematocrit 37.1 L Hemoglobin 12.5 L INR International Normalized Ratio 0.86 Indirect Bilirubin 0.5 Lymphocytes # 0.7 L Lymphocytes % 11.0 L Mean Corpuscular Hemoglobin 32.0 Mean Corpuscular Hemoglobin Concent 33.7 Mean Corpuscular Volume 94.9 Mean Platelet Volume 9.5 # Monocytes # 0.4 Monocytes % 6.1 Neutrophils # 5.1 Neutrophils % 80.7 H Nucleated Red Blood Cells # 0.0 Nucleated Red Blood Cells % 0.0 Platelet Count 249 Potassium Level 4.3 Prothrombin Time 11.7 L Prothrombin Time Ratio 0.9 Red Blood Count 3.91 L Red Cell Distribution Width 14.7 H Sodium Level 140 Total Bilirubin 0.5 Total Protein 5.1 L White Blood Count 6.4 Bedside Glucose 212 Medications Medications Current Medications Acetaminophen (Tylenol Tab) 650 mg Q6H PRN PO PAIN AND OR ELEVATED TEMP; Start 08/07/16 at 23:00 Morphine Sulfate (morphine) 2 mg Q4H PRN IV PAIN; Start 08/07/16 at 23:00 Ondansetron HCl (Zofran Inj) 4 mg Q6H PRN IV NAUSEA AND/OR VOMITING; Start 08/07 at 23:00 Diagnostic Test (Pha) (Accucheck) 1 ea 02 XX ; Start 08/08/16 at 02:00 Miscellaneous Information 1 ea NOTE XX ; Start 08/07/16 at 23:30 Glucose (Glutose) 15 gm Q15M PRN PO DECREASED GLUCOSE; Start 08/07/16 at 23:30 Glucose (Glutose) 22.5 gm Q15M PRN PO DECREASED GLUCOSE; Start 08/07/16 at 23:30 Dextrose (D50w Syringe) 25 ml Q15M PRN IV DECREASED GLUCOSE; Start 08/07/16 at 23:30 Dextrose (D50w Syringe) 50 ml Q15M PRN IV DECREASED GLUCOSE; Start 08/07/16 at 23:30 Glucagon (Glucagen) 1 mg Q15M PRN IM DECREASED GLUCOSE; Start 08/07/16 at 23:30 Glucose 15 gm 15 gm Q15M PRN BUCCAL DECREASED GLUCOSE; Start 08/07/16 at 23:30 Cefepime HCl (Maxipime 1gm/50 ml (Pmx)) 50 ml @ 100 mls/hr Q12 IVPB Last administered on 08/09/16 08:16; Admin Dose 100 MLS/HR; Start 08/08/16 at 09:00 Dexamethasone (Decadron) 2 mg Q8 PO Last administered on 08/08/16 21:43; Admin Dose 2 MG; Start 08/08/16 at 14:00 Fluconazole (Diflucan) 100 mg DAILY PO Last administered on 08/08/16 14:18; Admin Dose 100 MG; Start 08/08/16 at 13:00 Flucytosine (Ancobon Susp (Ped)) 500 mg TID PO ; Start 08/08/16 at 13:00; Status UNV Furosemide (Lasix) 40 mg QAM PO ; Start 08/09/16 at 09:00 Levetiracetam (Keppra) 500 mg BID PO Last administered on 08/08/16 20:40; Admin Dose 500 MG; Start 08/08/16 at 13:00 Acetaminophen/ Hydrocodone Bitart (Corrigan (5/325)) 1 tab Q4H PRN PO moderate pain ; Start 08/08/16 at 12:30 Ondansetron HCl (Zofran Inj) 4 mg Q4H PRN IV NAUSEA AND/OR VOMITING; Start 08/08 at 12:30 Pantoprazole (Protonix Iv) 40 mg DAILY@06 IV Last administered on 08/09/16 06: 16; Admin Dose 40 MG; Start 08/09/16 at 06:00 Insulin Glargine 20 unit 20 unit HS SC ; Start 08/09/16 at 21:00 Dextrose/Sodium Chloride 1,000 ml @ 75 mls/hr [id number] IV Last administered on 08/09/16 06:17; Admin Dose 75 MLS/HR; Start 08/09/16 at 06:30 Levetiracetam/ Sodium Chloride (Keppra Iv/NS) 105 ml @ 420 mls/hr Q12 IVPB ; Start 08/09/16 at 11:00 Miscellaneous Information (*Order Clarification Bulletin) MEDICATION REQUIRES CLARIFICATI... Q8H XX ; Start 08/09/16 at 10:00 RICHARD HENSON MD Aug 09, 2016 10:52
--- NOTE | 2016-08-09 10:53 | PDOCDIS ---
Discharge Instructions CONDITION Patient Condition: Good HOME CARE INSTRUCTIONS: Special Diet: diabetic carb controlled ACTIVITY: Activity Restrictions: Slowly Increase Activity Rest between Activity Avoid heavy lifting Avoid Heavy Housework FOLLOW UP/APPOINTMENTS Appointments follow up with his neurosurgery at other hospital,. pt will be followed up by other Primary care at other hospital RICHARD HENSON MD Aug 09, 2016 10:53
[2016-08-09] MEDS ORDERED: LEVETIRACETAM IV 500 MG in SOD CHLORIDE 0.9% 100 ML IVPB SCH (11:00)
[2016-08-09] MEDS ORDERED: INSULIN GLARGINE [LANtus] 3 ML PEN SC SCH (21:00)
--- NOTE | 2016-08-11 23:18 | DS ---
DATE OF ADMISSION: 08/08/2016 DATE OF DISCHARGE: 08/09/2016 FINAL DISCHARGE DIAGNOSES: 1. Severe intractable headache with recent neurosurgery. 2. History of recent craniectomy done for glioblastoma multiforme. MRI showed subcutaneous fluid c ollection, concerned about postoperative infection. 3. Aphasia secondary to history of recent neurosurgery. 4. History of diabetes mellitus, on insulin and sliding scale. CONSULTATIONS DONE DURING THIS HOSPITALIZATION: 1. Neurosurgery consult, Dr. Garcia. 2. Case management consultation. HOSPITAL COURSE: This is a 66-year-old male with a past medical history of recent neurosurgery done for glioblastoma multiforme on 06/20/2016. The patient had 1 fall episode at approximately 1 week before at home. He presented with a severe headache. He had a CT head done in the emergency room t hat was suspicious for some postoperative site infection, subsequently had MRI brain done, and it sh ows subcutaneous fluid collection which was concerned about infection. He was started on IV antibio tics, Ancef, to cover him for infection, had a neurosurgery evaluation done by Dr. Garcia, who brenda mmended the patient to get transferred to the hospital where he had surgery done. The patient had s urgery done in the [facility], so he gets transferred over there after talkin g with the physician over there. DISPOSITION: Transfer to the [facility]. He was accepted by primary care ph ysician Dr. Mota, and his neurosurgeon over there was Dr. Zamorano. DISCHARGE FOLLOWUP INSTRUCTIONS: The patient is to be followed up by primary care and Neurosurgery at the [facility]. DISCHARGE MEDICATION: As per medical reconciliation. Dictated By: RICHARD HENSON MD, KP/NTS Conf#: [id number] DID#: [id number]
== END 2016-08-09 15:00 | disposition short-term general hospital (02) | DRG 103 ==
LOC: E/R 13:45 → MS1 20:50 → E/R 22:15 → MS1 22:15 → UNDOADMOB 22:31 → MS1 23:34 → OBSVTOIN 08-08 12:27
PROVIDERS: ADMIT Internal Medicine; ATTEND Internal Medicine
DX: R51 Headache (principal); C71.9 Malignant neoplasm of brain, unspecified; R47.01 Aphasia; E78.5 Hyperlipidemia, unspecified; E11.9 Type 2 diabetes mellitus without complications; Z79.4 Long term (current) use of insulin
CPT/HCPCS: 36415; 70450; 70553; 80048; 80053; 82962; 83735; 84100; 85025; 85610; 85730; 87081; 96374; C9113; G0378; J0692; J1815; J1953; J2270; J7042